=== PATIENT | female | born 1940 | race Caucasian/White ===

== ENCOUNTER → 2018-07-29 14:35 | Outpatient (CLI) | payer MEDICARE, OTHER, SELFPAY ==
--- NOTE | 2018-07-29 14:56 | BD_ITS ---
STUDY: DUAL ENERGY X-RAY ABSORPTIOMETRY / DXA REASON FOR EXAM: Female, 78 years old. The patient is postmenopausal. Loss of height. TECHNIQUE: Bone Mineral Density (BMD) measurements of lumbar spine and bilateral hips were obtained. COMPARISON: None. FINDINGS: Lumbar Spine (L1-L4): g/cm2 (1.199) / T-score (0.3) / Z-score (2.1) Findings are suggestive of normal bone density with a low fracture risk. Left Femur Total: g/cm2 (0.827) / T-score (-1.4) / Z-score (0.5) Left Femoral Neck: g/cm2 (0.728) / T-score (-2.2) / Z-score (-0.1) Right Femur Total: g/cm2 (0.808) / T-score (-1.6) / Z-score (0.4) Right Femoral Neck: g/cm2 (0.731) / T-score (-2.2) / Z-score (-0.1) BD/Dexa Bone Density Study IMPRESSION: The patient is considered osteopenic as outlined below according to World Richard Organization (WHO) criteria with a moderate fracture risk. Reference Information: The T-score is the number of standard deviations above or below the standard which is normal for young adults at their peak bone mineral density. The World Health Organization (WHO) interprets the T-scores as follows: Above -1 Normal bone density Between -1 and -2.5 Osteopenia Equal to / or below -2.5 Osteoporosis As a practical clinical guideline, osteopenia may be graded as follows: Mild -1 through -1.5 Moderate -1.6 through -2.0 Severe -2.1 through -2.4 The Z-score is the number of standard deviations above or below age-matched controls. A Z-score of less than -1.5 would be considered abnormal. References: 1. NIH Osteoporosis and Related Bone Diseases http://www.osteo.org 2. International Society for Clinical Densitometry http://www.iscd.org 3. National Osteoporosis Foundation http://www.nof.org Electronically Signed: Mike Toledo MD at 15:59 EDT Tel [phone], Service support ,
== END ==
PROVIDERS: Family Provider Internal Medicine; PCP Internal Medicine; Visit Provider Internal Medicine
DX: Z78.0 Asymptomatic menopausal state (principal)
CPT/HCPCS: 77080

== ENCOUNTER 2020-12-05 09:56 | Outpatient (RCR) | payer MEDICARE, OTHER, SELFPAY ==
[2020-10-03 11:10] VITALS: BMI 31.9
== END 2020-12-05 23:59 ==
LOC: IMMUN 09:56
PROVIDERS: PCP Internal Medicine; Visit Provider Family Medicine
DX: Z23 Encounter for immunization (principal)
CPT/HCPCS: 0011A; 0012A; 91301

== ENCOUNTER → 2022-06-28 | Outpatient (CLI) | payer MEDICARE, OTHER, SELFPAY ==
[2022-06-28 15:34] LABS: Potassium 4.7 mmol/L (3.5-5.1)
== END | disposition home or self-care (01) ==
LOC: LABSPEC 14:53
PROVIDERS: PCP Internal Medicine; Visit Provider Internal Medicine
DX: E87.5 Hyperkalemia (principal)
CPT/HCPCS: 84132

== ENCOUNTER 2022-11-19 10:34 | Inpatient (IN) | payer MEDICARE, OTHER, SELFPAY ==
[2022-11-19] VITALS (8 sets, daily range): BP systolic 123–170; BP diastolic 57–119; PULSE 66–92; RESP 16–29; TEMP 36.2–36.5; O2SAT 92–96; BMI 34.2; BMI 29.2
--- NOTE | 2022-11-19 10:54 | EKG12_ITS ---
Test Reason : CP Blood Pressure : / mmHG Vent. Rate : 083 BPM Atrial Rate : 083 BPM P-R Int : 220 ms QRS Dur : 102 ms QT Int : 368 ms P-R-T Axes : 048 023 099 degrees QTc Int : 432 ms Sinus rhythm with 1st degree A-V block Consider voltage criteria for LVH Cannot rule out Septal infarct , age undetermined Nonspecific ST and T wave abnormality Abnormal ECG Confirmed by ANGIE FORD, LASHAWN ([id number]), metropolitan editor RICKI FERNANDEZ ([id number]) on 11/20/2022 9:39:15 AM Referred By: RACHEL Confirmed By:LASHAWN ADAMS MD
--- NOTE | 2022-11-19 10:55 | EDS_ITS ---
HPI History of Present Illness Chief Complaint: General Illness Detail of Chief Complaint: This and shortness of breath Informant: patient and family Narrative Narrative: Patient presents to the emergency department chest tightness x2 days. Patient also complains of shortness of breath that at times worse with exertion. She denies any radiation of the chest tightness into the arm or neck or jaw. Patient denies any fever or cough or sore throat. She denies urinary symptoms. Patient thinks that her chest discomfort may be related to eating too much gluten because she has a gluten sensitivity. Patient wanted to make sure she was not having a heart attack. Patient has no heart history otherwise. Patient denies recent travel or surgery. [facility] Medical History (Updated 11/19/22 @ 12:[address] Annie Srinivasan, ) Anxiety Cataracts, bilateral Confusion Diabetes type 1, controlled GERD (gastroesophageal reflux disease) Glaucoma HTN (hypertension) Hypothyroid Home Medications valsartan 160 mg tablet (Diovan) 160 mg PO QDAY 02/26/18 [History Last Taken 2 Days Ago ~11/17/22] Lantus Solostar U-100 Insulin 100 unit/mL (3 mL) subcutaneous pen (insulin glargine) See Rx Instructions subcut DAILY #15 mL 10/03/20 [Rx Last Taken 11/19/22] insulin lispro 100 unit/mL subcutaneous pen (Humalog KwikPen (U-100) Insulin) See Rx Instructions subcut TID e10.65 #30 mL 10/03/20 [Rx Last Taken 11/19/22] latanoprost 0.005 % eye drops 1 drp ophthalmic (eye) QHS GLUCOMA 01/02/21 [History Last Taken 11/18/22] timolol maleate 0.5 % eye drops 1 drp ophthalmic (eye) BID 01/02/21 [History Last Taken 11/19/22] levothyroxine 125 mcg tablet 125 mcg PO .8 tablets per week 09/07/21 [History Last Taken 11/18/22] Allergy/AdvReac Type Severity Reaction Status Date / Time egg [egg whites] Allergy Unknown NEEDS Verified 11/19/22 10:46 FOLLOW-UP house dust Allergy Unknown Unknown Verified 11/19/22 10:46 gluten AdvReac Intermediate unknown Verified 11/19/22 10:46 Family History Sister Diabetes Brother Asthma Social History Smoking Status: Never smoker how long ago did patient quit smokin+ yrs second hand exposure: No alcohol intake: never substance use type: does not use ROS ROS ED Review of Systems ROS Unobtainable: other Constitutional Constitutional ED: Reports lethargy; Denies chills, fever(s), sweats or weight loss Eyes Eyes: Denies blurry vision, change in vision or diplopia ENT ENT ED: Denies rhinorrhea or sore throat Cardiovascular Cardiovascular: Reports chest pain; Denies orthopnea or racing heartbeat Respiratory/Chest Respiratory/Chest: Reports dyspnea and dyspnea on exertion; Denies cough, orthopnea or sputum Gastrointestinal Gastrointestinal: Denies abdominal pain, diarrhea, nausea or vomiting Genitourinary Genitourinary ED: Denies dysuria, hematuria or urinary frequency Musculoskeletal Musculoskeletal: Denies arthralgias, back pain, myalgias or neck pain Integumentary Denies abscess, Abrasions or rash Neurologic Neurologic: Denies headache(s) or weakness Psychiatric Psychiatric: Denies anxiety, depression or suicidal thoughts Endocrine Endocrinology: Denies polydipsia, polyphagia or polyuria Hematologic/Lymphatic Hematologic/Lymphatic: Denies easy bleeding, easy bruising or lymphadenopathy Allergic/Immunologic Allergic/Immunologic ED: Denies mouth swelling, tongue swelling or urticaria EXAM Physical Exam Const Vital Signs: 11/19/22 10:37 11/19/22 10:46 11/19/22 11:30 Temperature 97.1 F L Temperature Source Temporal Pulse Rate 84 81 Respiratory Rate 29 H 22 H Respiratory Effort Short of Breath Respiratory Pattern Tachypnea Blood Pressure 158/119 H 166/112 H Blood Pressure Mean 132 130 Pulse Ox 95 96 Oxygen Delivery Method Room Air Room Air 11/19/22 12:30 Temperature Temperature Source Pulse Rate 91 Respiratory Rate 25 H Respiratory Effort Respiratory Pattern Blood Pressure 154/75 H Blood Pressure Mean 101 Pulse Ox 92 Oxygen Delivery Method Room Air Positive well nourished and well developed General Appearance ED: well developed and NAD HEENT Reports TM's clear and moist mucous membranes normocephalic and atraumatic; Negative for trauma or tenderness Tympanic Membrane ED: Yes TM's clear Eyes PERRL and EOMs intact bilaterally General Eye ED: Negative for pale conjunctiva or scleral icterus Neck no lymphadenopathy, supple and no JVD General: Negative for tenderness Chest Wall inspection of chest normal and palpation of chest normal Chest: Negative for tenderness Resp normal respiratory effort and clear to auscultation bilaterally Effort and Inspection: Negative for respiratory distress or pain with movement Auscultation: Negative for rhonchi, wheezes or diminished lung sounds Cardio regular rate, regular rhythm, S1 normal heart sound, S2 normal heart sound and no murmurs Peripheral Pulses: pulses 2+ throughout GI normal to inspection, nondistended, normoactive bowel sounds, soft to palpation, non-distended and no masses GI Narrative: Mild epigastric tenderness on palpation. There is no rebound, rigidity, or. Signs. Back/Spine no CVA tenderness and no thoracic nor lumbar tenderness Extremity normal to inspection General Extremety ED: Negative for edema General Extremity: Negative for edema Neuro oriented x3, CN's II-XII intact bilaterally, no sensory deficits noted and gait normal Sensorium / Orientation: awake, alert, oriented to person, oriented to place and oriented to time Motor Exam: strength 5/5 throughout and strength abnormal Psych mental status grossly normal Skin no rashes or lesions noted and no wounds MDM MDM MDM Narrative Medical decision making narrative: IV line established on arrival. Patient placed on traffic monitor specialist. Patient had an EKG obtained on arrival that showed a sinus rhythm with a rate of 83 bpm with old septal infarct and first-degree AV block. She had some nonspecific changes laterally which when compared with prior EKG from 2006 appear to be new. Patient did receive aspirin. In the differential was acute coronary syndrome versus PE versus congestive heart failure versus infectious process. Lab work- up significant for a normal WBC count of 10.7 and a hemoglobin of 15. Chemistries significant for a sodium of 128 and BUN of 28 g 1.39. Troponin was elevated at 2739. BNP was elevated. Chest x-ray showed bilateral pleural effusions and CHF. Because of the elevated D-dimer and elevated troponin a CT o f the chest was obtained to rule out PE and this was negative for PE but did show bilateral effusions and CHF. Rapid COVID and influenza testing was negative. Patient was started on heparin drip and given aspirin. Patient had an inch of Nitropaste placed to the anterior chest wall and she was started on Lasix 40 mg IV. Patient has non-ST elevation AL with CHF and pleural effusions. Case will be discussed with hospitalist to evaluate patient for admission. I did ask this with blanket inspector on-call Dr. Levine through a nurse given that he was in a procedure. He had no further recommendations at this time and patient will be admitted to medicine. Lab Data Attestation: I reviewed the patient's lab results. Labs: Laboratory Results - last 24 hr 11/19/22 11/19/22 11/19/22 10:50 10:50 10:50 WBC 10.7 RBC 4.86 Hgb 14.9 Hct 44.4 MCV 91.4 MCH 30.7 MCHC 33.6 RDW Std Deviation 44.1 H RDW Coeff of Geovanna 13.2 Plt Count 310 MPV 10.8 Immature Gran % (Auto) 0.400 Neut % (Auto) 73.1 H Lymph % (Auto) 19.1 [place] % (Auto) 5.6 Eos % (Auto) 1.1 Baso % (Auto) 0.7 Absolute Neuts (auto) 7.9 H Absolute Lymphs (auto) 2.05 Nucleated RBC % 0 PT INR APTT D-Dimer Quant (PE/DVT) 0.89 H* Sodium 128 L Potassium 4.4 Chloride 93 L Carbon Dioxide 26.0 Anion Gap 9 BUN 28 H Creatinine 1.39 H Estim Creat Clear Calc 23.14 Est GFR (MDRD) Af Amer 47 L Est GFR (MDRD) Non-Af 38 L BUN/Creatinine Ratio 20.1 H Glucose 241 H Calcium 9.6 Total Bilirubin 0.90 AST 44 H ALT 38 Alkaline Phosphatase 88 Troponin I High Sens 2739 H* B-Natriuretic Peptide Total Protein 7.7 Albumin 3.7 Globulin 4.0 Albumin/Globulin Ratio 0.9 11/19/22 11/19/22 10:50 10:50 WBC RBC Hgb Hct MCV MCH MCHC RDW Std Deviation RDW Coeff of Geovanna Plt Count MPV Immature Gran % (Auto) Neut % (Auto) Lymph % (Auto) [place] % (Auto) Eos % (Auto) Baso % (Auto) Absolute Neuts (auto) Absolute Lymphs (auto) Nucleated RBC % PT 12.4 INR 1.0 APTT 31.1 D-Dimer Quant (PE/DVT) Sodium Potassium Chloride Carbon Dioxide Anion Gap BUN Creatinine Estim Creat Clear Calc Est GFR (MDRD) Af Amer Est GFR (MDRD) Non-Af BUN/Creatinine Ratio Glucose Calcium Total Bilirubin AST ALT Alkaline Phosphatase Troponin I High Sens B-Natriuretic Peptide 1520.2 H Total Protein Albumin Globulin Albumin/Globulin Ratio Radiography Chest X-Ray - ED: 1 View Diagnostic Testing: Clinical Impression(s) from Imaging Studies Chest CTA 11/19/22 11:38 IMPRESSION: Moderate bilateral pleural effusions right greater than left with bibasilar compressive atelectasis. Patchy areas of confluence in the right upper lobe as well as lingular segment of the left upper lobe. Mild CHF. Electronically Signed: Mike Toledo MD at 12:32 EST , Chest X-Ray 11/19/22 11:40 IMPRESSION: CHF with bibasilar atelectasis and blunting of both costophrenic angles. Electronically Signed: Mike Toledo MD at 12:03 EST , 1 view chest x-ray obtained interpreted by myself as bilateral small pleural effusions and increased pulmonary congestion concerning for CHF. Radiology was in agreement. EKG Initial EKG: Attestation: I personally reviewed and interpreted this EKG as follows: Comments: Sinus rhythm with a rate of 83 bpm with old septal infarct and nonspecific ST changes laterally which are new when compared with EKG from 2006. Discharge Plan Dx/Rx/DC Orders Clinical Impression: Non-ST elevated myocardial infarction, CHF (congestive heart failure), Pleural effusion, History of diabetes mellitus, History of hypertension Disposition Disposition: Acute Care Hospital [facility]
[2022-11-19] MEDS: 0.9% Normal Saline 1,000 ML 15 ML IV (11:09)
[2022-11-19 11:18] LABS: Absolute Lymphocyte Count 2.05 X10^3/uL (0.83-4.51); Absolute Neutrophil Count 7.9 X10^3/uL (2.0-7.7); Basophil# 0.07 X10^3/uL; Basophil% 0.7 % (0-1); Eosinophil# 0.12 X10^3/uL; Eosinophils% 1.1 % (0-5); Hematocrit 44.4 % (37-47); Hemoglobin 14.9 g/dL (12.0-15.0); Lymphocyte # 2.05 X10^3/ul (0.83-4.51); Lymphocyte % 19.1 % (19-41); Mean Corp Hgb Conc 33.6 g/dL (32-36); Mean Corpuscular Hgb 30.7 pg (27.0-32.0); Mean Corpuscular Volume 91.4 fL (81-99); Mean Platelet Vol. 10.8 fl (6.2-12.0); Monocyte% 5.6 % (0-10); NRBC Flagged by Analyzer 0 % (0-5); Neutrophil # 7.86 X10^3/uL (2.7-7.7); Neutrophil % 73.1 % (47-70); Platelet Count 310 K/mm3 (150-450); RBC Distribution Width CV 13.2 % (11.6-14.6); RBC Distribution Width SD 44.1 fl (35.1-43.9); Red Blood Count 4.86 M/mm3 (4.2-5.4); White Blood Count 10.7 K/mm3 (4.4-11.0)
[2022-11-19 11:36] LABS: D-Dimer Quantitative (DVT/PE) 0.89 FEU/ug/m (0.27-0.49)
[2022-11-19 11:38] LABS: ALB/GLOB Ratio 0.9 RATIO (0.9-2.4); AST(SGOT) 44 U/L (15-37); Alanine Aminotransfer ALT/SGPT 38 U/L (13-56); Albumin, Serum 3.7 g/dL (3.2-5.0); Alkaline Phosphatase 88 U/L (45-117); BUN 28 mg/dL (7-18); BUN/Creat Ratio 20.1 RATIO (10-20); Calcium,Total 9.6 mg/dL (8.5-10.1); Chloride 93 mmol/L (98-107); Creatinine, Serum 1.39 mg/dL (0.55-1.02); EST Glomerular Filtration Rate 38 mL/min (>60); Est Glom Filt Rate - Afr Amer 47 mL/min (>60); Estimated Creatinine Clearance 23.14 ml/min; Glucose 241 mg/dL (74-106); Potassium 4.4 mmol/L (3.5-5.1); Protein, Total 7.7 g/dL (6.4-8.2); Sodium Level 128 mmol/L (136-145); Troponin-I HS 2739 pg/mL (3.0-54.0)
--- NOTE | 2022-11-19 11:38 | CT_ITS ---
STUDY: CTA CHEST REASON FOR EXAM: Female, 82 years old. Dyspnea, elevated d-dimer. EXTRA SERIES SCANNED TO INCLUDE OPACIFIED AORTIC ARCH RADIATION DOSAGE (If Supplied By Facility): CTDIvol = ( 13.60 ) mGy, DLP = ( 925.13 ) mGycm TECHNIQUE: The examination was performed with the intravenous administration of IV 100mL Isovue-370. Post-processing of the angiographic images was performed, with multiplanar reformation and 3D reconstruction. Individualized dose optimization techniques were used for this CT. COMPARISON: Comparison is made with prior chest radiograph done earlier in the day. FINDINGS: Normal enhancement of the main pulmonary artery and right and left pulmonary arteries. Normal enhancement of the bilateral peripheral pulmonary arteries. There is no demonstrated pulmonary embolism. There is atherosclerotic calcification of the aortic arch with tortuosity. Small amount of mural thrombus is seen at the level of the aortic arch and descending thoracic aorta. There is no demonstrated aortic dissection. There are calcifications of the coronary arteries. Normal mediastinum. Normal hilar regions. Normal visualized trachea and bronchi. Moderate bilateral pleural effusions right greater than left with bibasilar atelectasis. Increased markings with areas of confluence is seen in the right upper lobe as well as the lingular segment of the left upper lobe. Superimposed CHF. Normal chest wall structures. There are degenerative changes of thoracic spine. Calcified splenic granulomas. CT/CTA Chest W/WO Contrast IMPRESSION: Moderate bilateral pleural effusions right greater than left with bibasilar compressive atelectasis. Patchy areas of confluence in the right upper lobe as well as lingular segment of the left upper lobe. Mild CHF. Electronically Signed: iMke Toledo MD at 12:32 EST ,
[2022-11-19 11:39] LABS: Anion Gap 9 (5-15)
--- NOTE | 2022-11-19 11:40 | RAD_ITS ---
STUDY: X-RAY CHEST REASON FOR EXAM: Female, 82 years old. Chest tightness and dyspnea. TECHNIQUE: Single AP portable view of the chest. COMPARISON: None. FINDINGS: EKG electrodes are seen. Is evidence of CHF with bibasilar atelectasis and blunting of both costophrenic angles. Normal size heart. Normal mediastinum and paula. Normal visualized pulmonary arteries. There is atherosclerotic calcification of the aortic arch with tortuosity. There are degenerative changes of the visualized thoracic spine. There is degenerative osteoarthritis of the bilateral shoulders. There is no demonstrated abnormality of the visualized soft tissue structures of the upper abdomen. RAD/Chest 1 View (Portable) IMPRESSION: CHF with bibasilar atelectasis and blunting of both costophrenic angles. Electronically Signed: Mike Toledo MD at 12:03 EST ,
[2022-11-19 11:55] LABS: BNP,B-Type NATRIURETIC PEPTIDE 1520.2 pg/mL (0-100)
[2022-11-19] MEDS: Aspirin 81 MG TAB.CHEW 324 MG PO (12:22)
[2022-11-19] MEDS: Heparin Injection (Vial) 5,000 UNIT/ML VIAL 6000 UNIT IV (12:24)
[2022-11-19 12:26] LABS: Prothrombin Time (Protime)PT. 12.4 SECONDS (11.7-14.9)
[2022-11-19 12:28] LABS: Partial Thromboplast Time 31.1 Seconds (24.1-36.2)
[2022-11-19] MEDS: Furosemide 40 MG/4 ML Vial IV ×2 (12:35→18:46)
[2022-11-19] MEDS: HEPARIN/D5w 25,000 UNITS 25,000 UNITS/250 ML IV.SOLN. 12 UNITS CONT INF (12:43)
[2022-11-19] MEDS: Nitroglycerin Oint 1 INCH PACKET TD (12:52)
--- NOTE | 2022-11-19 13:44 | ECHOCS_ITS ---
Reason For Study: CHF Procedure This was a 2D Doppler, Color Flow transthoracic echocardiogram. The study was technically difficult. Exam performed portable in patient room. Left Ventricle Normal LV size. Mild concentric left ventricular hypertrophy. The estimated ejection fraction is 15 %. Severe segmental systolic dysfunction (see wall motion). Stage 2 diastolic dysfunction. [place] : Akinetic. Mid-Anterior : Akinetic. Mid-anteroseptal : Severely Hypokinetic. Inferior [place] : Akinetic. Anterio-Basal: Hypokinetic. Mid-Inferior: Hypokinetic. Infero-Basal: Normal. The rest of the wall segments are hypokinetic. Right Ventricle Normal RV size. Normal systolic function. Atria The left atrium is mildly enlarged. Normal right atrium. Mitral Valve There is moderate to severe mitral annular calcification. Moderate (2+) anteriorly directed mitral valve insufficiency. Tricuspid Valve Normal tricuspid valve. Moderate (2+) tricuspid valve insufficiency. Pulmonary artery systolic pressure is 54 mmHg. Aortic Valve Trisinus/trileaflet aortic valve. Mild focal aortic valve calcification. Mild (1+) aortic valve insufficiency. Great Vessels Calcified aortic root. The pulmonary artery is normal size. The inferior vena cava is dilated. Pericardium/Pleural No pericardial effusion. Moderate size left pleural effusion. Medication Diluted definity 2ml given slow IV push to enhance endocardial definition. MMode/2D Measurements & Calculations LVIDd: 5.3 cm IVSd: 1.4 cm LVOT diam: 2.0 cm LVIDs: 4.3 cm LVPWd: 1.2 cm LVOT area: 3.2 cm2 RVDd: 3.2 cm FS: 18.4 % Ao root diam: 2.7 cm LAV(MOD-bp): 72.5 ml LVAd ap4: 37.0 cm2 LAV(MOD-bp) Indexed: 40.1 ml/m2 LVLd ap4: 7.9 cm LAV(MOD-sp2): 70.0 ml EDV(MOD-sp4): 139.9 ml LAV(MOD-sp4): 69.8 ml EDV(sp4-el): 147.1 ml LVAs ap4: 32.4 cm2 LVLs ap4: 7.9 cm ESV(MOD-sp4): 108.9 ml ESV(sp4-el): 112.5 ml EF(MOD-sp4): 22.1 % EF(sp4-el): 23.5 % SV(MOD-sp4): 31.0 ml SV(sp4-el): 34.6 ml LA A4 area: 22.8 cm2 LA dimension(2D): 4.2 cm RA A4 area: 16.8 cm2 Time Measurements MV dec time: 0.22 sec Doppler Measurements & Calculations MV E max froilan: 170.3 cm/sec Lat Peak E' Froilan: 8.9 cm/sec Med Peak E' Froilan: 4.6 cm/sec MV A max froilan: 119.1 cm/sec E/E' lat: 19.2 E/E' med: 36.9 MV E/A: 1.4 MV P1/2t max froilan: 205.1 cm/sec Ao V2 max: 115.3 cm/sec LV V1 max: 56.8 cm/sec MV P1/2t: 76.5 msec Ao max P.3 mmHg LV V1 max P.3 mmHg Ao V2 mean: 83.7 cm/sec LV V1 mean P.63 mmHg MV dec slope: 785.1 cm/sec2 Ao mean P.1 mmHg LV V1 mean: 36.8 cm/sec MVA(P1/2t): 2.9 cm2 Ao V2 VTI: 17.0 cm LV V1 VTI: 9.0 cm AV (velocity ratio): 0.53 BRYON(I,D): 1.7 cm2 BRYON(V,D): 1.6 cm2 SV(LVOT): 28.6 ml PA V2 max: 56.8 cm/sec TR max froilan: 348.1 cm/sec TR max P.5 mmHg ECHO/Echo Complete W/ Contrast Interpretation Summary Normal LV size. Mild concentric left ventricular hypertrophy. The estimated ejection fraction is 15 %. Severe segmental systolic dysfunction (see wall motion). The left atrium is mildly enlarged. There is moderate to severe mitral annular calcification. Moderate (2+) anteriorly directed mitral valve insufficiency. Stage 2 diastolic dysfunction. Contrast injection was performed. Ordering Physician: Dylon Benito Referring Physician: ANTWON MUÑOZ Performed By: Blaire White RDCS
--- NOTE | 2022-11-19 15:05 | CON.PCM.CA_ITS ---
Assessment & Plan Assessment/Plan (1) Non-ST elevated myocardial infarction: PLAN: She presents with mild chest discomfort abnormal cardiac enzymes consistent with a non-ST elevation myocardial infarction. Her EKG does demonstrate poor R wave progression. Her echocardiogram which is in the process of being performed demonstrates severe left ventricular systolic dysfunction with wall motion abnormalities. * My suspicion is that she has had a recent non-ST elevation myocardial infarction * The plan will be to continue with aspirin * Continue heparin for now * Will consider left heart catheterization when clinically stable (2) CHF (congestive heart failure): PLAN: She does have evidence of congestive heart failure with reduced ejection fraction [place] [employer] class IV ACC stage D. Will recommend intravenous diuresis Low-dose beta-david and titrate upwards as appropriate Add SGLT2 inhibitor Add Entresto during this hospitalization Her ejection fraction is estimated to be less than 25% (3) History of hypertension: PLAN: She presented with an elevated blood pressure which appears to be better at this time but will recommend continuation of the beta-david and the addition of Entresto. HPI Consult Data Date of Consult: 11/19/22 HPI Narrative HPI Narrative: GERMÁN HENSLEY, is a 82 F who presents to the emergency room complaining of shortness of breath which has been ongoing for few days. She has a history of diabetes mellitus as well as hypertension but her history is quite nebulous but she says that since [place] after she checked into a hotel because it was too cold she has never really felt well. She is also had some chest tightness as well as shortness of breath she denies any pedal edema. She has had a mild cough and thinks that she has had mild orthopnea. She denies any paroxysmal nocturnal dyspnea. She has not had any radiation of this discomfort. She presented to the emergency room was evaluated and blood work demonstrated an elevated natruretic peptide as well as troponin level. Her EKG demonstrated poor R wave progression. She was admitted for further evaluation and manag ement. [facility] Medical History (Updated 11/19/22 @ 12:[address] Annie Srinivasan DO) Anxiety Cataracts, bilateral Confusion Diabetes type 1, controlled GERD (gastroesophageal reflux disease) Glaucoma HTN (hypertension) Hypothyroid Home Medications valsartan 160 mg tablet (Diovan) 160 mg PO QDAY 02/26/18 [History Last Taken 2 Days Ago ~11/17/22] Lantus Solostar U-100 Insulin 100 unit/mL (3 mL) subcutaneous pen (insulin glargine) See Rx Instructions subcut DAILY #15 mL 10/03/20 [Rx Last Taken 11/04 04/26] insulin lispro 100 unit/mL subcutaneous pen (Humalog KwikPen (U-100) Insulin) See Rx Instructions subcut TID e10.65 #30 mL 10/03/20 [Rx Last Taken 11/19/22] latanoprost 0.005 % eye drops 1 drp ophthalmic (eye) QHS GLUCOMA 01/02/21 [History Last Taken 11/18/22] timolol maleate 0.5 % eye drops 1 drp ophthalmic (eye) BID 01/02/21 [History Last Taken 11/19/22] levothyroxine 125 mcg tablet 125 mcg PO .8 tablets per week 09/07/21 [History Last Taken 11/18/22] Allergy/AdvReac Type Severity Reaction Status Date / Time egg [egg whites] Allergy Unknown NEEDS Verified 11/19/22 10:46 FOLLOW-UP house dust Allergy Unknown Unknown Verified 11/19/22 10:46 gluten AdvReac Intermediate unknown Verified 11/19/22 10:46 Family History Sister Diabetes Brother Asthma Social History Smoking Status: Never smoker how long ago did patient quit smokin+ yrs second hand exposure: No alcohol intake: never substance use type: does not use ROS Constitutional Constitutional: Denies fever(s) or weight loss Eyes Eyes: Reports systems reviewed and no addt'l complaints, except as documented ENT HEENT: Reports systems reviewed and no addt'l complaints, except as documented Cardiovascular Cardiovascular: Reports chest pain at rest, dyspnea at rest and dyspnea on exertion; Denies chest pain with activity, edema, palpitations or paroxysmal nocturnal dyspnea Respiratory/Chest Respiratory/Chest: Reports dyspnea on exertion, productive cough, shortness of breath at rest and shortness of breath with exertion Gastrointestinal Gastrointestinal: Denies change in bowel habits, nausea, vomiting or weight changes Genitourinary Genitourinary: Denies difficulty urinating Musculoskeletal Musculoskeletal: Denies joint stiffness or muscle weakness Integumentary Integumentary: Denies lesions Neurologic Neurologic: Denies dizziness or syncope Psychiatric Psychiatric: Denies anxiety Endocrine Endocrinology: Denies excessive sweating or fatigue Hematologic/Lymphatic Hematologic/Lymphatic: Denies anemia Allergic/Immunologic Allergic/Immunologic: Denies seasonal rhinorrhea Physical Exam Const alert, oriented x3 and no apparent distress General Appearance: cooperative HEENT hearing grossly normal bilaterally Head and Scalp: atraumatic Eyes EOMs intact bilaterally Neck General: normal visual inspection Chest inspection of chest normal and palpation of chest normal Resp normal respiratory effort Auscultation: diminished lung sounds Cardio regular rate, regular rhythm, S1 normal heart sound and S2 normal heart sound Jugular Venous Distention: JVD Heart Sounds: gallop GI normal to inspection, nondistended, normoactive bowel sounds Extremity normal capillary refill and no pedal edema Peripheral Pulses: Yes pulses 2+ throughout and femoral pulses present Skin no rashes or lesions noted Neuro oriented x3 and CN's II-XII intact bilaterally Psych Appearance: grossly normal and appropriate Risk Stratification Risk Stratification Applicable: Yes Age >/= 65: Yes >/= 3 CAD Risk Factors (HTN, HLD, DM, family hx of CAD, or current smoker): Yes Aspirin Use in the Past 7 Days: No Severe Angina (>/= episodes in 24 hours): No EKG ST Changes >/= 0.5mm: No Positive Cardiac Marker: Yes LOU Risk Stratification Score: 3 LOU % Risk: 13% Risk Objective Data Vital Signs: Vital Signs Temp Pulse Resp BP Pulse Ox O2 Del Method 97.7 F L 90 18 170/77 H 94 Room Air 11/19/22 13:53 11/19/22 13:53 11/19/22 13:53 11/19/22 13:53 11/19/22 13:53 11/19/22 13:53 Oxygen Delivery Method Room Air Weight: 170 lb 3.15 oz Body Mass Index (BMI) 29.2 Intake & Output: Intake and Output for Last 24 Hours 11/17/22 11/18/22 11/19/22 23:59 23:59 23:59 Intake Total 46.5 / 46.5 Balance 46.5 / 46.5 Lab / Micro Data Result Diagrams: 11/19/22 10:50 11/19/22 10:50 Labs: Laboratory Results - last 24 hr 11/19/22 10:50: WBC 10.7, RBC 4.86, Hgb 14.9, Hct 44.4, MCV 91.4, MCH 30.7, MCHC 33.6, RDW Std Deviation 44.1 H, RDW Coeff of Geovanna 13.2, Plt Count 310, MPV 10.8, Immature Gran % (Auto) 0.400, Neut % (Auto) 73.1 H, Lymph % (Auto) 19.1, [place] % (Auto) 5.6, Eos % (Auto) 1.1, Baso % (Auto) 0.7, Absolute Neuts (auto) 7.9 H, Absolute Lymphs (auto) 2.05, Nucleated RBC % 0 11/19/22 10:50: D-Dimer Quant (PE/DVT) 0.89 H* 11/19/22 10:50: Sodium 128 L, Potassium 4.4, Chloride 93 L, Carbon Dioxide 26.0, Anion Gap 9, BUN 28 H, Creatinine 1.39 H, Estim Creat Clear Calc 23.14, Est GFR (MDRD) Af Amer 47 L, Est GFR (MDRD) Non-Af 38 L, BUN/Creatinine Ratio 20.1 H, Glucose 241 H, Calcium 9.6, Total Bilirubin 0.90, AST 44 H, ALT 38, Alkaline Phosphatase 88, Troponin I High Sens 2739 H*, Total Protein 7.7, Albumin 3.7, Globulin 4.0, Albumin/Globulin Ratio 0.9 11/19/22 10:50: B-Natriuretic Peptide 1520.2 H 11/19/22 10:50: PT 12.4, INR 1.0, APTT 31.1 Micro: Microbiology 11/19/22 10:50 Nasal Secretion SARS-CoV-2 & FLU Antigen (Rapid) - Final Rhythm Strip Rhythm Strip: Sinus Rhythm Cardiology Labs/Tests 11/19/22 10:50: WBC 10.7, RBC 4.86, Hgb 14.9, Hct 44.4, MCV 91.4, MCH 30.7, MCHC 33.6, Plt Count 310, MPV 10.8, Immature Gran % (Auto) 0.400, Neut % (Auto) 73.1 H, Lymph % (Auto) 19.1, [place] % (Auto) 5.6, Eos % (Auto) 1.1, Baso % (Auto) 0.7, Absolute Neuts (auto) 7.9 H, Nucleated RBC % 0 11/19/22 10:50: D-Dimer Quant (PE/DVT) 0.89 H* 11/19/22 10:50: Sodium 128 L, Potassium 4.4, Chloride 93 L, Carbon Dioxide 26.0, Anion Gap 9, BUN 28 H, Creatinine 1.39 H, Est GFR (MDRD) Af Amer 47 L, Est GFR (MDRD) Non-Af 38 L, BUN/Creatinine Ratio 20.1 H, Glucose 241 H, Calcium 9.6, Total Bilirubin 0.90 11/19/22 10:50: B-Natriuretic Peptide 1520.2 H 11/19/22 10:50: PT 12.4, INR 1.0, APTT 31.1 Rhythm: EKG: ECHO: Stress Test: Cardiac Cath: PCI: CT Surgery: Holter monitor: EPS: PPM: CXR: Chest CT Scan: Radiography Diagnostic Testing: Radiology Impression Chest CTA 11/19/22 11:38 IMPRESSION: Moderate bilateral pleural effusions right greater than left with bibasilar compressive atelectasis. Patchy areas of confluence in the right upper lobe as well as lingular segment of the left upper lobe. Mild CHF. Electronically Signed: Mike Toledo MD at 12:32 EST , Chest X-Ray 11/19/22 11:40 IMPRESSION: CHF with bibasilar atelectasis and blunting of both costophrenic angles. Electronically Signed: Mike Toledo MD at 12:03 EST ,
[2022-11-19] MEDS: Losartan Potassium 50 MG Tablet PO (15:38)
--- NOTE | 2022-11-19 15:48 | PCM.HP.STD ---
HPI - General General Date of Admission: 11/19/22 HPI Narrative GERMÁN HENSLEY, is a 82 F who presents to the hospital with shortness of breath and orthopnea. She states that she has been noticing increased pressure and dyspnea on exertion for the last couple of days but it was really bad yesterday and then even worse today. She has difficulty laying down and feels better when she is sitting upright. In the ER her troponin was found to be 2700 with an elevated BNP to 1520, we do not have baselines for either of those labs. [facility] Medical History (Updated 11/19/22 @ 12:[address] Annie Srinivasan DO) Anxiety Cataracts, bilateral Confusion Diabetes type 1, controlled GERD (gastroesophageal reflux disease) Glaucoma HTN (hypertension) Hypothyroid Home Medications valsartan 160 mg tablet (Diovan) 160 mg PO QDAY 02/26/18 [History Last Taken 2 Days Ago ~11/17/22] Lantus Solostar U-100 Insulin 100 unit/mL (3 mL) subcutaneous pen (insulin glargine) See Rx Instructions subcut DAILY #15 mL 10/03/20 [Rx Last Taken 11/19/22] insulin lispro 100 unit/mL subcutaneous pen (Humalog KwikPen (U-100) Insulin) See Rx Instructions subcut TID e10.65 #30 mL 10/03/20 [Rx Last Taken 11/19/22] latanoprost 0.005 % eye drops 1 drp ophthalmic (eye) QHS GLUCOMA 01/02/21 [History Last Taken 11/18/22] timolol maleate 0.5 % eye drops 1 drp ophthalmic (eye) BID 01/02/21 [History Last Taken 11/19/22] levothyroxine 125 mcg tablet 125 mcg PO .8 tablets per week 09/07/21 [History Last Taken 11/18/22] Allergy/AdvReac Type Severity Reaction Status Date / Time egg [egg whites] Allergy Unknown NEEDS Verified 11/19/22 10:46 FOLLOW-UP house dust Allergy Unknown Unknown Verified 11/19/22 10:46 gluten AdvReac Intermediate unknown Verified 11/19/22 10:46 Family History Sister Diabetes Brother Asthma Social History Smoking Status: Never smoker how long ago did patient quit smokin+ yrs second hand exposure: No alcohol intake: never substance use type: does not use ROS Constitutional Constitutional: Denies chills, fatigue, fever(s) or malaise Eyes Eyes: Denies blurry vision ENT HEENT: Denies headache(s) or nasal discharge Cardiovascular Cardiovascular: Reports dyspnea on exertion and orthopnea; Denies chest pain or syncope Respiratory/Chest Respiratory/Chest: Denies cough, shortness of breath at rest or shortness of breath with exertion Gastrointestinal Gastrointestinal: Denies constipation, diarrhea, nausea or vomiting Genitourinary Genitourinary: Denies dysuria Neurologic Neurologic: Denies focal weakness, numbness or tremor(s) Psychiatric Psychiatric: Denies anxiety or depression Vital Signs Vital Signs Vital Signs: 11/19/22 10:37 11/19/22 10:46 11/19/22 11:30 Temperature 97.1 F L Temperature Source Temporal Pulse Rate 84 81 Respiratory Rate 29 H 22 H Respiratory Effort Short of Breath Respiratory Pattern Tachypnea Blood Pressure 158/119 H 166/112 H Blood Pressure Mean 132 130 Blood Pressure Source Blood Pressure Position Blood Pressure Location Pulse Ox 95 96 Oxygen Delivery Method Room Air Room Air 11/19/22 12:30 11/19/22 12:52 11/19/22 13:15 Temperature 97.1 F L Temperature Source Temporal Pulse Rate 91 92 88 Respiratory Rate 25 H 16 Respiratory Effort Respiratory Pattern Blood Pressure 154/75 H 163/94 H 158/88 H Blood Pressure Mean 101 111 Blood Pressure Source Blood Pressure Position Blood Pressure Location Pulse Ox 92 92 Oxygen Delivery Method Room Air Room Air 11/19/22 13:53 Temperature 97.7 F L Temperature Source Oral Pulse Rate 90 Respiratory Rate 18 Respiratory Effort Respiratory Pattern Blood Pressure 170/77 H Blood Pressure Mean 108 Blood Pressure Source Monitor Blood Pressure Position Semi-Fowlers Blood Pressure Location Left Arm Pulse Ox 94 Oxygen Delivery Method Room Air Weight Weight: 170 lb 3.15 oz Body Mass Index (BMI) 29.2 Physical Exam Const alert, oriented x3 and no apparent distress General Appearance: cooperative HEENT normocephalic Mouth: dry mucous membranes Eyes PERRL, EOMs intact bilaterally and conjunctivae normal Neck supple and no JVD Resp normal respiratory effort, no retractions and no use of accessory muscles Resp Narrative: Diminished Auscultation: Negative for crackles, rales, rhonchi or wheezes Cardio regular rate, regular rhythm, S1 normal heart sound, S2 normal heart sound and no murmurs GI soft to palpation, non-tender and non-distended; Negative for hepatosplenomegaly Extremity Extremity Narrative: Trace lower extremity edema General Extremity: Negative for clubbing or cyanosis Skin no rashes or lesions noted Neuro no focal motor deficits and no sensory deficits noted Psych Mood & Affect: anxious Results Lab / Micro Data Result Diagrams: 11/19/22 10:50 11/19/22 10:50 Labs: Laboratory Results - last 24 hr 11/19/22 10:50: WBC 10.7, RBC 4.86, Hgb 14.9, Hct 44.4, MCV 91.4, MCH 30.7, MCHC 33.6, RDW Std Deviation 44.1 H, RDW Coeff of Geovanna 13.2, Plt Count 310, MPV 10.8, Immature Gran % (Auto) 0.400, Neut % (Auto) 73.1 H, Lymph % (Auto) 19.1, [place] % (Auto) 5.6, Eos % (Auto) 1.1, Baso % (Auto) 0.7, Absolute Neuts (auto) 7.9 H, Absolute Lymphs (auto) 2.05, Nucleated RBC % 0 11/19/22 10:50: D-Dimer Quant (PE/DVT) 0.89 H* 11/19/22 10:50: Sodium 128 L, Potassium 4.4, Chloride 93 L, Carbon Dioxide 26.0, Anion Gap 9, BUN 28 H, Creatinine 1.39 H, Estim Creat Clear Calc 23.14, Est GFR (MDRD) Af Amer 47 L, Est GFR (MDRD) Non-Af 38 L, BUN/Creatinine Ratio 20.1 H, Glucose 241 H, Calcium 9.6, Total Bilirubin 0.90, AST 44 H, ALT 38, Alkaline Phosphatase 88, Troponin I High Sens 2739 H*, Total Protein 7.7, Albumin 3.7, Globulin 4.0, Albumin/Globulin Ratio 0.9 11/19/22 10:50: B-Natriuretic Peptide 1520.2 H 11/19/22 10:50: PT 12.4, INR 1.0, APTT 31.1 Micro: Microbiology 11/19/22 10:50 Nasal Secretion SARS-CoV-2 & FLU Antigen (Rapid) - Final Rhythm Strip Rhythm Strip: Sinus Rhythm Radiology Impression Chest CTA 11/19/22 11:38 IMPRESSION: Moderate bilateral pleural effusions right greater than left with bibasilar compressive atelectasis. Patchy areas of confluence in the right upper lobe as well as lingular segment of the left upper lobe. Mild CHF. Electronically Signed: Mike Toledo MD at 12:32 EST , Chest X-Ray 11/19/22 11:40 IMPRESSION: CHF with bibasilar atelectasis and blunting of both costophrenic angles. Electronically Signed: Mike Toledo MD at 12:03 EST , Assessment & Plan Assessment/Plan (1) Non-ST elevated myocardial infarction: (2) CHF (congestive heart failure): PLAN: Plan 1. Non-STEMI with acute heart failure of unknown type ? She did receive a dose of Lasix in the ER for her BNP ? Consult cardiology for heart cath ? Continue with heparin drip and continue with IV Lasix, she was also started on Coreg ? Continue with losartan ? Her kidney function is elevated but it is unclear as to whether or not this is her baseline or an ALMITA as we have no previous lab work, her creatinine on admission is 1.39 ? Echo is pending 2. DM2 ? Stable, Accu-Cheks AC at bedtime ? Continue sliding scale insulin and the long-acting insulin ? Will make adjustments as necessary 3. Hypothyroidism ? Stable ? Continue with Synthroid 4. Anxiety ? She did have rapid speech and perseverated she was also somewhat restless in bed she does have very poor insight into her mental health and with family at bedside it does appear that she has OCD and hoarding tendencies I discussed with her the possibility of being started on an antidepressant but she said no and that she would not take anything on discharge ? We will provide some Ativan to help her sleep while here in the hospital DVT: Heparin drip Charges/Coding Visit Charges Inpatient E&M: 90169 Init Hosp L2
[2022-11-19] MEDS: Insulin Lispro 100 UNIT/ML INSULN.PEN SC (17:03)
[2022-11-19 17:10] LABS: Bedside Glucose 273 mg/dL (74-106)
[2022-11-19 17:39] LABS: Troponin-I HS 1792 pg/mL (3.0-54.0)
[2022-11-19] MEDS: 0.9% Saline Lock 10 ML Syringe IV ×2 (18:46→23:27)
[2022-11-19 19:41] LABS: Partial Thromboplast Time > 200.0 Seconds (24.1-36.2)
[2022-11-19 19:43] LABS: Troponin-I HS 2404 pg/mL (3.0-54.0)
[2022-11-19] MEDS: Insulin Glargine-YFGN 100 UNIT/ML Pen 10 UNIT SC (22:00)
[2022-11-19] MEDS: Carvedilol 3.125 MG TABLET PO (22:00)
[2022-11-19] MEDS: Timolol 0.5% 5ML OPTH.BTL 1 DRP EACH EYE (22:01)
[2022-11-19 22:31] LABS: Bacteria 0 SEEN /hpf (None Seen); Color, Urine Yellow (Yellow); Glucose, Dipstick Normal (Normal); Ketone-Dipstick Negative (Negative); Leukocyte Esterase-Dipstick Negative /ul (Negative); Mucous, Urine 0 SEEN /hpf (<or=2+); Nitrite-Dipstick Negative (Negative); Occult Blood-Urine Negative /ul (Negative); Protein-Dipstick Negative (Negative); Red Blood Cells-Urine 0 SEEN /hpf (0-5); Squamous Epithelial Cells - UA 0 SEEN /hpf (5-10); Urine Bilirubin Dipstick Negative (Negative); Urine Clarity Clear (Clear); Urine Urobilinogen Normal (Normal); White Blood Cells 0 SEEN /hpf (0-5)
[2022-11-19] MEDS: LORazepam 2 MG/ML Syringe 0.5 MG IV (23:27)
[2022-11-19 23:31] LABS: Bedside Glucose 232 mg/dL (74-106)
[2022-11-19 23:54] LABS: Troponin-I HS 5671 pg/mL (3.0-54.0)
[2022-11-20] VITALS (9 sets, daily range): BP systolic 116–145; BP diastolic 54–83; PULSE 58–77; RESP 16–18; TEMP 36.4–37.3; O2SAT 91–99
[2022-11-20] MEDS: Insulin Lispro 100 UNIT/ML INSULN.PEN SC ×4 (01:09→21:37)
[2022-11-20 01:31] LABS: Bedside Glucose 172 mg/dL (74-106)
[2022-11-20 03:43] LABS: Absolute Lymphocyte Count 3.33 X10^3/uL (0.83-4.51); Absolute Neutrophil Count 4.6 X10^3/uL (2.0-7.7); Basophil# 0.07 X10^3/uL; Basophil% 0.8 % (0-1); Eosinophil# 0.09 X10^3/uL; Hematocrit 39.5 % (37-47); Hemoglobin 13.3 g/dL (12.0-15.0); Lymphocyte # 3.33 X10^3/ul (0.83-4.51); Lymphocyte % 37.1 % (19-41); Mean Corp Hgb Conc 33.7 g/dL (32-36); Mean Corpuscular Hgb 30.6 pg (27.0-32.0); Mean Platelet Vol. 10.2 fl (6.2-12.0); Monocyte# 0.84 X10^3/uL; Monocyte% 9.4 % (0-10); NRBC Flagged by Analyzer 0 % (0-5); Neutrophil % 51.3 % (47-70); Platelet Count 276 K/mm3 (150-450); RBC Distribution Width CV 13.1 % (11.6-14.6); RBC Distribution Width SD 43.1 fl (35.1-43.9); Red Blood Count 4.34 M/mm3 (4.2-5.4)
[2022-11-20 03:59] LABS: Anion Gap 9 (5-15); BUN 34 mg/dL (7-18); BUN/Creat Ratio 22.4 RATIO (10-20); Calcium,Total 9.1 mg/dL (8.5-10.1); Chloride 95 mmol/L (98-107); Creatinine, Serum 1.52 mg/dL (0.55-1.02); EST Glomerular Filtration Rate 35 mL/min (>60); Est Glom Filt Rate - Afr Amer 42 mL/min (>60); Estimated Creatinine Clearance 24.22 ml/min; Glucose 96 mg/dL (74-106); Potassium 4.2 mmol/L (3.5-5.1); Sodium Level 133 mmol/L (136-145)
[2022-11-20 04:04] LABS: Partial Thromboplast Time 158.2 Seconds (24.1-36.2)
[2022-11-20] MEDS: Levothyroxine 125 MCG Tablet PO (06:20)
[2022-11-20 06:50] LABS: Bedside Glucose 85 mg/dL (74-106)
--- NOTE | 2022-11-20 08:27 | PN.CARD_ITS ---
Subjective Subjective Patient seen and evaluated. Appears to be breathing much better this morning. Objective Data Vital Signs: Vital Signs Temp Pulse Resp BP Pulse Ox O2 Del Method 97.5 F L 64 18 117/62 94 Room Air 11/20/22 06:25 11/20/22 06:25 11/20/22 06:25 11/20/22 06:25 11/20/22 06:25 11/20/22 06:25 Oxygen Delivery Method Room Air Weight: 170 lb 3.15 oz Body Mass Index (BMI) 29.2 Intake & Output: Intake and Output for Last 24 Hours 11/18/22 11/19/22 11/20/22 23:59 23:59 23:59 Intake Total 331.1 / 331.1 177.15 / 177.15 Output Total 0 / 0 Balance 331.1 / 331.1 177.15 / 177.15 Lab / Micro Data Result Diagrams: 11/20/22 03:34 11/20/22 03:34 Labs: Laboratory Results - last 24 hr 11/19/22 10:50: WBC 10.7, RBC 4.86, Hgb 14.9, Hct 44.4, MCV 91.4, MCH 30.7, MCHC 33.6, RDW Std Deviation 44.1 H, RDW Coeff of Geovanna 13.2, Plt Count 310, MPV 10.8, Immature Gran % (Auto) 0.400, Neut % (Auto) 73.1 H, Lymph % (Auto) 19.1, Stephens % (Auto) 5.6, Eos % (Auto) 1.1, Baso % (Auto) 0.7, Absolute Neuts (auto) 7.9 H, Absolute Lymphs (auto) 2.05, Nucleated RBC % 0 11/19/22 10:50: D-Dimer Quant (PE/DVT) 0.89 H* 11/19/22 10:50: Sodium 128 L, Potassium 4.4, Chloride 93 L, Carbon Dioxide 26.0, Anion Gap 9, BUN 28 H, Creatinine 1.39 H, Estim Creat Clear Calc 23.14, Est GFR (MDRD) Af Amer 47 L, Est GFR (MDRD) Non-Af 38 L, BUN/Creatinine Ratio 20.1 H, Glucose 241 H, Calcium 9.6, Total Bilirubin 0.90, AST 44 H, ALT 38, Alkaline Phosphatase 88, Troponin I High Sens 2739 H*, Total Protein 7.7, Albumin 3.7, Globulin 4.0, Albumin/Globulin Ratio 0.9 11/19/22 10:50: B-Natriuretic Peptide 1520.2 H 11/19/22 10:50: PT 12.4, INR 1.0, APTT 31.1 11/19/22 16:52: POC Glucose 273 H 11/19/22 16:55: Troponin I High Sens 1792 H* 11/19/22 18:46: APTT > 200.0 H* 11/19/22 18:46: Troponin I High Sens 2404 H* 11/19/22 21:58: POC Glucose 232 H 11/19/22 22:09: Urine Color Yellow, Urine Clarity Clear, Urine pH 6.0, Ur Specific [place] 1.010, Urine Protein Negative, Urine Glucose (UA) Normal, Urine Ketones Negative, Urine Occult Blood Negative, Urine Nitrite Negative, Urine Bilirubin Negative, Urine Urobilinogen Normal, Ur Leukocyte Esterase Negative, Urine RBC 0 SEEN, Urine WBC 0 SEEN, Ur Squamous Epith Cells 0 SEEN, Urine Bacteria 0 SEEN, Urine Mucus 0 SEEN 11/19/22 23:10: Troponin I High Sens 5671 H* 11/20/22 01:09: POC Glucose 172 H 11/20/22 03:34: WBC 9.0, RBC 4.34, Hgb 13.3, Hct 39.5, MCV 91.0, MCH 30.6, MCHC 33.7, RDW Std Deviation 43.1, RDW Coeff of Geovanna 13.1, Plt Count 276, MPV 10.2, Immature Gran % (Auto) 0.400, Neut % (Auto) 51.3, Lymph % (Auto) 37.1, Stephens % (A uto) 9.4, Eos % (Auto) 1.0, Baso % (Auto) 0.8, Absolute Neuts (auto) 4.6, Absolute Lymphs (auto) 3.33, Nucleated RBC % 0 11/20/22 03:34: Sodium 133 L, Potassium 4.2, Chloride 95 L, Carbon Dioxide 29.0, Anion Gap 9, BUN 34 H, Creatinine 1.52 H, Estim Creat Clear Calc 24.22, Est GFR (MDRD) Af Amer 42 L, Est GFR (MDRD) Non-Af 35 L, BUN/Creatinine Ratio 22.4 H, Glucose 96, Calcium 9.1 11/20/22 03:34: APTT 158.2 H* 11/20/22 06:18: POC Glucose 85 Micro: Microbiology 11/19/22 10:50 Nasal Secretion SARS-CoV-2 & FLU Antigen (Rapid) - Final Rhythm Strip Rhythm Strip: Sinus Rhythm Cardiology Labs/Tests 11/19/22 10:50: WBC 10.7, RBC 4.86, Hgb 14.9, Hct 44.4, MCV 91.4, MCH 30.7, MCHC 33.6, Plt Count 310, MPV 10.8, Immature Gran % (Auto) 0.400, Neut % (Auto) 73.1 H, Lymph % (Auto) 19.1, Stephens % (Auto) 5.6, Eos % (Auto) 1.1, Baso % (Auto) 0.7, Absolute Neuts (auto) 7.9 H, Nucleated RBC % 0 11/19/22 10:50: D-Dimer Quant (PE/DVT) 0.89 H* 11/19/22 10:50: Sodium 128 L, Potassium 4.4, Chloride 93 L, Carbon Dioxide 26.0, Anion Gap 9, BUN 28 H, Creatinine 1.39 H, Est GFR (MDRD) Af Amer 47 L, Est GFR (MDRD) Non-Af 38 L, BUN/Creatinine Ratio 20.1 H, Glucose 241 H, Calcium 9.6, Total Bilirubin 0.90 11/19/22 10:50: B-Natriuretic Peptide 1520.2 H 11/19/22 10:50: PT 12.4, INR 1.0, APTT 31.1 11/19/22 18:46: APTT > 200.0 H* 11/19/22 22:09: Urine Color Yellow, Urine Clarity Clear, Urine pH 6.0, Ur Specific [place] 1.010, Urine Protein Negative, Urine Glucose (UA) Normal, Urine Ketones Negative, Urine Occult Blood Negative, Urine Nitrite Negative, Urine Bilirubin Negative, Urine Urobilinogen Normal, Ur Leukocyte Esterase Negative, Urine RBC 0 SEEN, Urine WBC 0 SEEN 11/20/22 03:34: WBC 9.0, RBC 4.34, Hgb 13.3, Hct 39.5, MCV 91.0, MCH 30.6, MCHC 33.7, Plt Count 276, MPV 10.2, Immature Gran % (Auto) 0.400, Neut % (Auto) 51.3, Lymph % (Auto) 37.1, Stephens % (Auto) 9.4, Eos % (Auto) 1.0, Baso % (Auto) 0.8, Absolute Neuts (auto) 4.6, Nucleated RBC % 0 11/20/22 03:34: Sodium 133 L, Potassium 4.2, Chloride 95 L, Carbon Dioxide 29.0, Anion Gap 9, BUN 34 H, Creatinine 1.52 H, Est GFR (MDRD) Af Amer 42 L, Est GFR (MDRD) Non-Af 35 L, BUN/Creatinine Ratio 22.4 H, Glucose 96, Calcium 9.1 11/20/22 03:34: APTT 158.2 H* Rhythm: EKG: ECHO: Stress Test: Cardiac Cath: PCI: CT Surgery: Holter monitor: EPS: PPM: CXR: Chest CT Scan: Radiography Diagnostic Testing: Radiology Impression Chest CTA 11/19/22 11:38 IMPRESSION: Moderate bilateral pleural effusions right greater than left with bibasilar compressive atelectasis. Patchy areas of confluence in the right upper lobe as well as lingular segment of the left upper lobe. Mild CHF. Electronically Signed: Mike Toledo MD at 12:32 EST , Chest X-Ray 11/19/22 11:40 IMPRESSION: CHF with bibasilar atelectasis and blunting of both costophrenic angles. Electronically Signed: Mike Toledo MD at 12:03 EST , Echocardiogram 11/19/22 13:44 Interpretation Summary Normal LV size. Mild concentric left ventricular hypertrophy. The estimated ejection fraction is 15 %. Severe segmental systolic dysfunction (see wall motion). The left atrium is mildly enlarged. There is moderate to severe mitral annular calcification. Moderate (2+) anteriorly directed mitral valve insufficiency. Stage 2 diastolic dysfunction. Contrast injection was performed. Ordering Physician: Dylon Benito Referring Physician: ANTWON MUÑOZ Performed By: Blaire White RDCS Physical Exam Const alert, oriented x3 and no apparent distress General Appearance: cooperative HEENT normocephalic Mouth: dry mucous membranes Eyes PERRL, EOMs intact bilaterally and conjunctivae normal Neck supple and no JVD Resp normal respiratory effort, no retractions and no use of accessory muscles Resp Narrative: Diminished Auscultation: Negative for crackles, rales, rhonchi or wheezes Cardio regular rate, regular rhythm, S1 normal heart sound, S2 normal heart sound and no murmurs GI soft to palpation, non-tender and non-distended; Negative for hepatosplenomegaly Extremity Extremity Narrative: Trace lower extremity edema General Extremity: Negative for clubbing or cyanosis Skin no rashes or lesions noted Neuro no focal motor deficits and no sensory deficits noted Psych Mood & Affect: anxious Assessment & Plan Assessment/Plan (1) Non-ST elevated myocardial infarction: PLAN: She presents with mild chest discomfort abnormal cardiac enzymes consistent with a non-ST elevation myocardial infarction. Her EKG does demonstrate poor R wave progression. Her echocardiogram demonstrates severe left ventricular systolic dysfunction with wall motion abnormalities. * My suspicion is that she has had a recent non-ST elevation myocardial infarction * The plan will be to continue with aspirin * Continue heparin for now * Will consider left heart catheterization when clinically stable (2) CHF (congestive heart failure): PLAN: She does have evidence of congestive heart failure with reduced ejection fraction [place] Heart Association class IV ACC stage D. Will recommend intravenous diuresis Low-dose beta-david and titrate upwards as appropriate Add SGLT2 inhibitor Add Entresto during this hospitalization Her ejection fraction is estimated to be less than 25% (3) History of hypertension: PLAN: She presented with an elevated blood pressure which appears to be better at this time but will recommend continuation of the beta-david and the addition of Entresto.
[2022-11-20] MEDS: Carvedilol 3.125 MG TABLET PO ×2 (10:10→21:31)
[2022-11-20] MEDS: Empagliflozin 10 MG Tablet PO (10:10)
[2022-11-20] MEDS: Furosemide 40 MG/4 ML Vial IV ×2 (10:10→17:21)
[2022-11-20] MEDS: Timolol 0.5% 5ML OPTH.BTL 1 DRP EACH EYE ×2 (10:11→21:32)
[2022-11-20] MEDS: Losartan Potassium 50 MG Tablet PO (10:11)
--- NOTE | 2022-11-20 11:07 | PN.HOSP_ITS ---
Subjective Subjective Breathing little bit better and was able to sleep last night with a dose of Ativan Objective Data Objective Data Vital Signs: Vital Signs Temp Pulse Resp BP Pulse Ox O2 Del Method 98.1 F 71 16 143/76 H 91 Room Air 11/20/22 08:29 11/20/22 08:29 11/20/22 08:29 11/20/22 08:29 11/20/22 08:29 11/20/22 08:30 Oxygen Delivery Method Room Air Weight: 170 lb 3.15 oz Body Mass Index (BMI) 29.2 Intake & Output: Intake and Output for Last 24 Hours 11/19/22 11/20/22 11/21/22 03:59 03:59 03:59 Intake Total 331.1 / 331.1 177.15 / 177.15 Output Total 0 / 0 Balance 331.1 / 331.1 177.15 / 177.15 Lab / Micro Data Result Diagrams: 11/20/22 03:34 11/20/22 03:34 Labs: Laboratory Results - last 24 hr 11/19/22 10:50: WBC 10.7, RBC 4.86, Hgb 14.9, Hct 44.4, MCV 91.4, MCH 30.7, MCHC 33.6, RDW Std Deviation 44.1 H, RDW Coeff of Geovanna 13.2, Plt Count 310, MPV 10.8, Immature Gran % (Auto) 0.400, Neut % (Auto) 73.1 H, Lymph % (Auto) 19.1, [place] % (Auto) 5.6, Eos % (Auto) 1.1, Baso % (Auto) 0.7, Absolute Neuts (auto) 7.9 H, Absolute Lymphs (auto) 2.05, Nucleated RBC % 0 11/19/22 10:50: D-Dimer Quant (PE/DVT) 0.89 H* 11/19/22 10:50: Sodium 128 L, Potassium 4.4, Chloride 93 L, Carbon Dioxide 26.0, Anion Gap 9, BUN 28 H, Creatinine 1.39 H, Estim Creat Clear Calc 23.14, Est GFR (MDRD) Af Amer 47 L, Est GFR (MDRD) Non-Af 38 L, BUN/Creatinine Ratio 20.1 H, Glucose 241 H, Calcium 9.6, Total Bilirubin 0.90, AST 44 H, ALT 38, Alkaline Phosphatase 88, Troponin I High Sens 2739 H*, Total Protein 7.7, Albumin 3.7, Globulin 4.0, Albumin/Globulin Ratio 0.9 11/19/22 10:50: B-Natriuretic Peptide 1520.2 H 11/19/22 10:50: PT 12.4, INR 1.0, APTT 31.1 11/19/22 16:52: POC Glucose 273 H 11/19/22 16:55: Troponin I High Sens 1792 H* 11/19/22 18:46: APTT > 200.0 H* 11/19/22 18:46: Troponin I High Sens 2404 H* 11/19/22 21:58: POC Glucose 232 H 11/19/22 22:09: Urine Color Yellow, Urine Clarity Clear, Urine pH 6.0, Ur Specific [place] 1.010, Urine Protein Negative, Urine Glucose (UA) Normal, Urine Ketones Negative, Urine Occult Blood Negative, Urine Nitrite Negative, Urine Bilirubin Negative, Urine Urobilinogen Normal, Ur Leukocyte Esterase Negative, Urine RBC 0 SEEN, Urine WBC 0 SEEN, Ur Squamous Epith Cells 0 SEEN, Urine Bacteria 0 SEEN, Urine Mucus 0 SEEN 11/19/22 23:10: Troponin I High Sens 5671 H* 11/20/22 01:09: POC Glucose 172 H 11/20/22 03:34: WBC 9.0, RBC 4.34, Hgb 13.3, Hct 39.5, MCV 91.0, MCH 30.6, MCHC 33.7, RDW Std Deviation 43.1, RDW Coeff of Geovanna 13.1, Plt Count 276, MPV 10.2, Immature Gran % (Auto) 0.400, Neut % (Auto) 51.3, Lymph % (Auto) 37.1, [place] % (Auto) 9.4, Eos % (Auto) 1.0, Baso % (Auto) 0.8, Absolute Neuts (auto) 4.6, Absolute Lymphs (auto) 3.33, Nucleated RBC % 0 11/20/22 03:34: Sodium 133 L, Potassium 4.2, Chloride 95 L, Carbon Dioxide 29.0, Anion Gap 9, BUN 34 H, Creatinine 1.52 H, Estim Creat Clear Calc 24.22, Est GFR (MDRD) Af Amer 42 L, Est GFR (MDRD) Non-Af 35 L, BUN/Creatinine Ratio 22.4 H, Glucose 96, Calcium 9.1 11/20/22 03:34: APTT 158.2 H* 11/20/22 06:18: POC Glucose 85 Micro: Microbiology 11/19/22 10:50 Nasal Secretion SARS-CoV-2 & FLU Antigen (Rapid) - Final Radiography Diagnostic Testing: Radiology Impression Chest CTA 11/19/22 11:38 IMPRESSION: Moderate bilateral pleural effusions right greater than left with bibasilar compressive atelectasis. Patchy areas of confluence in the right upper lobe as well as lingular segment of the left upper lobe. Mild CHF. Electronically Signed: Mike Toledo MD at 12:32 EST , Chest X-Ray 11/19/22 11:40 IMPRESSION: CHF with bibasilar atelectasis and blunting of both costophrenic angles. Electronically Signed: Mike Toledo MD at 12:03 EST , Echocardiogram 11/19/22 13:44 Interpretation Summary Normal LV size. Mild concentric left ventricular hypertrophy. The estimated ejection fraction is 15 %. Severe segmental systolic dysfunction (see wall motion). The left atrium is mildly enlarged. There is moderate to severe mitral annular calcification. Moderate (2+) anteriorly directed mitral valve insufficiency. Stage 2 diastolic dysfunction. Contrast injection was performed. Ordering Physician: Dylon Benito Referring Physician: ANTWON MUÑOZ Performed By: Christopher, Blaire, RDCS Rhythm Strip Rhythm Strip: Sinus Rhythm Physical Exam Narrative General: Alert, Oriented x3, Cooperative, No apparent distress HEENT: Atraumatic, PERRLA, EOMI, Normocephalic Oral: Dry mucosa Neck: Supple, No JVD Lungs: Diminished, Normal air movement, No rhonchi, No wheeze, No rales Cardiovascular: Regular rate, Regular Rhythm, Normal S1, Normal S2, No murmurs Abdomen: Soft, Non Tender, Non-Distended, No Hepato-splenomegaly Extremities: Trace edema, Capillary Refill Less than 3 Seconds Skin: No rashes, No breakdown Musculoskeletal: No Tenderness to Palpation of Joints or Extremities Neurological: Cranial nerves II-XII grossly intact, Motor Exam 5/5 strength throughout, Sensory exam intact to light touch and pain Psych/Mental Status: Anxious Assessment & Plan Assessment/Plan (1) Non-ST elevated myocardial infarction: (2) CHF (congestive heart failure): PLAN: Plan 1. Non-STEMI with acute systolic and diastolic CHF exacerbation ? Consult cardiology for heart cath once stable ? Continue with heparin drip and continue with IV Lasix, she was also started on Coreg ? Continue with losartan and an SGLT2 inhibitor ? Continue with aspirin ? Her kidney function is elevated but it is unclear as to whether or not this is her baseline or an ALMITA as we have no previous lab work, her creatinine on admission is 1.39 ? Echo with an EF of 15% and stage II diastolic dysfunction 2. DM2 ? Stable, Accu-Cheks AC at bedtime ? Continue sliding scale insulin and the long-acting insulin ? Will make adjustments as necessary 3. Hypothyroidism ? Stable ? Continue with Synthroid 4. Anxiety ? She did have rapid speech and perseverated on certain issues, she was also somewhat restless in bed she does have very poor insight into her mental health and with family at bedside it does appear that she has OCD and hoarding tendencies I discussed with her the possibility of being started on an antidepressant but she said no and that she would not take anything on discharge ? We will provide some Ativan to help her sleep while here in the hospital DVT: Heparin drip Charges/Coding Visit Charges Inpatient E&M: 43040 Subs Hosp L2
[2022-11-20 11:40] LABS: Bedside Glucose 190 mg/dL (74-106)
--- NOTE | 2022-11-20 12:40 | CASEMGMT ---
RHIANNON BARNEY Face to Face with patient for initial transition planning/care coordination assessment. RN CM introduced self and role at [facility]. Patient lying in bed, alert and oriented, niece at bedside. Patient willing to participate in assessment and is able to answer all questions appropriately. Care providers, pharmacy, and demographics verified. Patient wishes to discharge home, will monitor for HHC. Patient states she has no further needs or concerns at this time. CM to follow for discharge planning needs that may arise. PCP: Mandi Specialists: enedelia Hernandes Pharmacy: [facility] Insurance: [facility], [facility] Prescription Benefit: yes Living Will/HPOA: yes, Sadie Banda, niece LNOK: nieces, sister Living Arrangements: Patient lives alone in a 2 story home with bed and bath on first floor with 6 steps to enter the home. Patient states she is independent at home. Transportation: self, friend DME/HHC: Patient states she has cane, wheelchair, grab bars, glucometer and supplies. Patient denies previous HHC or SNF. Will monitor for HHC at discharge. Disposition Plan: Patient to discharge home with family support and follow-up plans in place. Will monitor for HHC. Glenna ALCALA, RN, CM
[2022-11-20 12:50] LABS: Partial Thromboplast Time 44.4 Seconds (24.1-36.2)
[2022-11-20] MEDS: Heparin Injection (Vial) 5,000 UNIT/ML VIAL IV ×2 (13:02→21:28)
--- NOTE | 2022-11-20 14:16 | CHAPLAIN ---
Type of Pastoral Visit _x__ Initial Visit ___ Follow-up Visit ___ On-call Visit ___ General Patient Visit ___ Spiritual Assessment ___ Family Conference ___ Bereavement ___ Rapid Response ___ Code Blue ___ Other (describe below) Pastoral Care Referral From _x__ Patient ___ Family ___ Nurse ___ Physician ___ Director Of Veterans Affairs ___ Hearing Instrument Specialist ___ Other (describe below) Sacrament/Intervention _x__ Active listening ___ Anointing ___ Pentecostal ___ Bereavement ___ Communion ___ Alyssa exploration ___ ___ Life review ___ Prayer ___ Reconciliation ___ Sacrament of Sick ___ Supportive presence ___ Wedding ___ Other (describe below) Pastoral Comments patient describes her experience and how surprised she was after a life of great health and a history of family with longevity; family members have been visiting with her today; no other needs at this time
--- NOTE | 2022-11-20 14:51 | NURSING ---
Pt's niece/POA, Sadie Banda, brought in pt's living will and POA paperwork. [facility]'s current contact information is [phone]. Information given to registration to be added to chart.
[2022-11-20] MEDS: Nystatin Powder 15gm Bottle 1 APPLIC TOPICAL ×2 (14:58→21:32)
[2022-11-20 16:50] LABS: Bedside Glucose 297 mg/dL (74-106)
--- NOTE | 2022-11-20 19:54 | NURSING ---
call placed to lab aPTT is in progress in laboratory.
[2022-11-20 19:59] LABS: Partial Thromboplast Time 53.3 Seconds (24.1-36.2)
--- NOTE | 2022-11-20 20:17 | NURSING ---
Verbal consent signed with Sadie MENA, consent given for heart cath in AM and blood transfusion if needed. consent verified with Joanne JURADO Charge nurse.
[2022-11-20] MEDS: MELATONIN 3 MG TABLET PO (21:32)
[2022-11-20] MEDS: Insulin Glargine-YFGN 100 UNIT/ML Pen 10 UNIT SC (21:36)
[2022-11-20] MEDS: HEPARIN/D5w 25,000 UNITS 25,000 UNITS/250 ML IV.SOLN. 8 UNITS CONT INF (22:42)
[2022-11-20 22:50] LABS: Bedside Glucose 200 mg/dL (74-106)
[2022-11-21] VITALS (11 sets, daily range): BP systolic 111–153; BP diastolic 43–116; PULSE 51–69; RESP 16–18; TEMP 36.4–36.8; O2SAT 94–99
[2022-11-21 04:22] LABS: Absolute Lymphocyte Count 3.43 X10^3/uL (0.83-4.51); Absolute Neutrophil Count 5.2 X10^3/uL (2.0-7.7); Eosinophil# 0.16 X10^3/uL; Eosinophils% 1.6 % (0-5); Hematocrit 39.4 % (37-47); Hemoglobin 13.5 g/dL (12.0-15.0); Lymphocyte # 3.43 X10^3/ul (0.83-4.51); Lymphocyte % 34.7 % (19-41); Mean Corp Hgb Conc 34.3 g/dL (32-36); Mean Corpuscular Hgb 30.8 pg (27.0-32.0); Monocyte# 0.99 X10^3/uL; NRBC Flagged by Analyzer 0 % (0-5); Neutrophil # 5.18 X10^3/uL (2.7-7.7); Neutrophil % 52.4 % (47-70); Platelet Count 282 K/mm3 (150-450); RBC Distribution Width CV 13.4 % (11.6-14.6); Red Blood Count 4.38 M/mm3 (4.2-5.4); White Blood Count 9.9 K/mm3 (4.4-11.0)
[2022-11-21] MEDS: Dextrose 50%-Water 25 GM/50 ML DISP.SYRIN IV ×2 (04:45)
[2022-11-21 04:47] LABS: Anion Gap 10 (5-15); BUN 50 mg/dL (7-18); Calcium,Total 9.4 mg/dL (8.5-10.1); Chloride 97 mmol/L (98-107); Creatinine, Serum 1.92 mg/dL (0.55-1.02); EST Glomerular Filtration Rate 27 mL/min (>60); Est Glom Filt Rate - Afr Amer 32 mL/min (>60); Estimated Creatinine Clearance 19.17 ml/min; Glucose 62 mg/dL (74-106); Potassium 3.7 mmol/L (3.5-5.1); Sodium Level 136 mmol/L (136-145)
[2022-11-21 05:11] LABS: Bedside Glucose 66 mg/dL (74-106)
[2022-11-21 05:43] LABS: Partial Thromboplast Time 91.6 Seconds (24.1-36.2)
--- NOTE | 2022-11-21 05:55 | EKG12_ITS ---
Test Reason : AM EKG Blood Pressure : / mmHG Vent. Rate : 059 BPM Atrial Rate : 059 BPM P-R Int : 214 ms QRS Dur : 124 ms QT Int : 484 ms P-R-T Axes : 057 009 111 degrees QTc Int : 479 ms Sinus bradycardia with 1st degree A-V block Left ventricular hypertrophy with QRS widening and repolarization abnormality ( Brayan product ) Cannot rule out Septal infarct (cited on or before 19-NOV-2022) Abnormal ECG When compared with ECG of 19-NOV-2022 10:36, QRS duration has increased Confirmed by VANI FORD, NHAN ([id number]), legal editor RICKI FERNANDEZ ([id number]) on 11/22/2022 8:27:04 AM Referred By: Confirmed By:NHAN LUDWIG MD
[2022-11-21] MEDS: Nystatin Powder 15gm Bottle 1 APPLIC TOPICAL ×2 (07:06→14:12)
[2022-11-21] MEDS: Levothyroxine 125 MCG Tablet 62.5 MCG PO (07:06)
[2022-11-21] MEDS: Losartan Potassium 50 MG Tablet PO ×2 (07:07)
[2022-11-21] MEDS: Aspirin E.C. 81 MG Tablet PO (07:08)
[2022-11-21] MEDS: Carvedilol 3.125 MG TABLET PO (07:08)
[2022-11-21 07:35] LABS: Bedside Glucose 213 mg/dL (74-106)
[2022-11-21 07:35] LABS: Bedside Glucose 214 mg/dL (74-106)
[2022-11-21] MEDS: 0.9% Normal Saline 1,000 ML 15 ML IV (08:24)
--- NOTE | 2022-11-21 10:20 | PCM.PN.HOSP ---
Subjective Subjective Doing well, denies any shortness of breath or chest pain Objective Data Objective Data Vital Signs: Vital Signs Temp Pulse Resp BP Pulse Ox O2 Del Method 97.5 F L 69 18 146/69 H 98 Room Air 11/21/22 07:04 11/21/22 07:04 11/21/22 07:04 11/21/22 07:04 11/21/22 07:04 11/21/22 08:10 Oxygen Delivery Method Room Air Weight: 166 lb 0.129 oz Body Mass Index (BMI) 29.2 Intake & Output: Intake and Output for Last 24 Hours 11/20/22 11/21/22 11/22/22 03:59 03:59 03:59 Intake Total 331.1 / 331.1 895.40 / 895.40 177.13 / 177.13 Output Total 1900 / 1900 300 / 300 Balance 331.1 / 331.1 -1004.60 / -1004.60 -122.87 / -122.87 Lab / Micro Data Result Diagrams: 11/21/22 03:26 11/21/22 03:26 Labs: Laboratory Results - last 24 hr 11/20/22 11:15: POC Glucose 190 H 11/20/22 12:14: APTT 44.4 H 11/20/22 16:20: POC Glucose 297 H 11/20/22 19:00: APTT 53.3 H 11/20/22 21:36: POC Glucose 200 H 11/21/22 03:26: WBC 9.9, RBC 4.38, Hgb 13.5, Hct 39.4, MCV 90.0, MCH 30.8, MCHC 34.3, RDW Std Deviation 44.0 H, RDW Coeff of Geovanna 13.4, Plt Count 282, MPV 11.0, Immature Gran % (Auto) 0.300, Neut % (Auto) 52.4, Lymph % (Auto) 34.7, [place] % (Auto) 10.0, Eos % (Auto) 1.6, Baso % (Auto) 1.0, Absolute Neuts (auto) 5.2, Absolute Lymphs (auto) 3.43, Nucleated RBC % 0 11/21/22 03:26: Sodium 136, Potassium 3.7, Chloride 97 L, Carbon Dioxide 29.0, Anion Gap 10, BUN 50 H, Creatinine 1.92 H, Estim Creat Clear Calc 19.17, Est GFR (MDRD) Af Amer 32 L, Est GFR (MDRD) Non-Af 27 L, BUN/Creatinine Ratio 26.0 H, Glucose 62 L, Calcium 9.4 11/21/22 03:26: APTT 91.6 H* 11/21/22 04:34: POC Glucose 66 L 11/21/22 06:05: POC Glucose 213 H 11/21/22 07:04: POC Glucose 214 H Micro: Microbiology 11/19/22 10:50 Nasal Secretion SARS-CoV-2 & FLU Antigen (Rapid) - Final Rhythm Strip Rhythm Strip: Sinus Rhythm Physical Exam Narrative General: Alert, Oriented x3, Cooperative, No apparent distress HEENT: Atraumatic, PERRLA, EOMI, Normocephalic Oral: Moist mucosa Neck: Supple, No JVD Lungs: Diminished, Normal air movement, No rhonchi, No wheeze, No rales Cardiovascular: Regular rate, Regular Rhythm, Normal S1, Normal S2, No murmurs Abdomen: Soft, Non Tender, Non-Distended, No Hepato-splenomegaly Extremities: No edema, Capillary Refill Less than 3 Seconds Skin: No rashes, No breakdown Musculoskeletal: No Tenderness to Palpation of Joints or Extremities Neurological: Cranial nerves II-XII grossly intact, Motor Exam 5/5 strength throughout, Sensory exam intact to light touch and pain Psych/Mental Status: Anxious Assessment & Plan Assessment/Plan (1) Non-ST elevated myocardial infarction: (2) CHF (congestive heart failure): PLAN: Plan 1. Non-STEMI with acute systolic and diastolic CHF exacerbation ? Consult cardiology for heart cath once stable ? Continue with heparin drip, she was also started on Coreg ? Continue with losartan and an SGLT2 inhibitor ? Continue with aspirin ? She now has an ALMITA likely secondary to the Lasix, will hold and recheck renal function in the morning ? Echo with an EF of 15% and stage II diastolic dysfunction 2. DM2 ? Stable, Accu-Cheks AC at bedtime ? Continue sliding scale insulin and the long-acting insulin ? Will make adjustments as necessary 3. Hypothyroidism ? Stable ? Continue with Synthroid 4. Anxiety ? She did have rapid speech and perseverated on certain issues, she was also somewhat restless in bed she does have very poor insight into her mental health and with family at bedside it does appear that she has OCD and hoarding tendencies I discussed with her the possibility of being started on an antidepressant but she said no and that she would not take anything on discharge ? We will provide some Ativan to help her sleep while here in the hospital DVT: Heparin drip Charges/Coding Visit Charges Inpatient E&M: 21047 Subs Hosp L2
[2022-11-21 11:11] LABS: Bedside Glucose 221 mg/dL (74-106)
--- NOTE | 2022-11-21 12:29 | CM.UR ---
RHIANNON BARNEY NOTE: PT/OT notes reviewed. PT rec OP therapy. OT states no additional therapy recommended. RHIANNON CM to room to discuss discharge planning/therapies recommendations. Pt is out of room @ this time for heart cath. Diann ALCALA RN CM
--- NOTE | 2022-11-21 12:44 | PN.CARD_ITS ---
Subjective Subjective Patient seen and related. Appears to be doing well. Underwent left heart catheterization today Objective Data Vital Signs: Vital Signs Temp Pulse Resp BP Pulse Ox O2 Del Method 98.1 F 64 16 153/56 H 96 Room Air 11/21/22 10:47 11/21/22 10:47 11/21/22 10:47 11/21/22 10:47 11/21/22 10:47 11/21/22 10:47 Oxygen Delivery Method Room Air Weight: 166 lb 0.129 oz Body Mass Index (BMI) 29.2 Intake & Output: Intake and Output for Last 24 Hours 11/19/22 11/20/22 11/21/22 23:59 23:59 23:59 Intake Total 331.1 / 331.1 775.40 / 895.40 297.13 / 297.13 Output Total 500 / 1900 1700 / 1700 Balance 331.1 / 331.1 275.40 / -1004.60 -1402.87 / -1402.87 Lab / Micro Data Result Diagrams: 11/21/22 03:26 11/21/22 03:26 Labs: Laboratory Results - last 24 hr 11/20/22 12:14: APTT 44.4 H 11/20/22 16:20: POC Glucose 297 H 11/20/22 19:00: APTT 53.3 H 11/20/22 21:36: POC Glucose 200 H 11/21/22 03:26: WBC 9.9, RBC 4.38, Hgb 13.5, Hct 39.4, MCV 90.0, MCH 30.8, MCHC 34.3, RDW Std Deviation 44.0 H, RDW Coeff of Geovanna 13.4, Plt Count 282, MPV 11.0, Immature Gran % (Auto) 0.300, Neut % (Auto) 52.4, Lymph % (Auto) 34.7, [place] % (Auto) 10.0, Eos % (Auto) 1.6, Baso % (Auto) 1.0, Absolute Neuts (auto) 5.2, Absolute Lymphs (auto) 3.43, Nucleated RBC % 0 11/21/22 03:26: Sodium 136, Potassium 3.7, Chloride 97 L, Carbon Dioxide 29.0, Anion Gap 10, BUN 50 H, Creatinine 1.92 H, Estim Creat Clear Calc 19.17, Est GFR (MDRD) Af Amer 32 L, Est GFR (MDRD) Non-Af 27 L, BUN/Creatinine Ratio 26.0 H, Glucose 62 L, Calcium 9.4 11/21/22 03:26: APTT 91.6 H* 11/21/22 04:34: POC Glucose 66 L 11/21/22 06:05: POC Glucose 213 H 11/21/22 07:04: POC Glucose 214 H 11/21/22 10:49: POC Glucose 221 H Rhythm Strip Rhythm Strip: Sinus Rhythm Cardiology Labs/Tests 11/20/22 12:14: APTT 44.4 H 11/20/22 19:00: APTT 53.3 H 11/21/22 03:26: WBC 9.9, RBC 4.38, Hgb 13.5, Hct 39.4, MCV 90.0, MCH 30.8, MCHC 34.3, Plt Count 282, MPV 11.0, Immature Gran % (Auto) 0.300, Neut % (Auto) 52.4, Lymph % (Auto) 34.7, [place] % (Auto) 10.0, Eos % (Auto) 1.6, Baso % (Auto) 1.0, Absolute Neuts (auto) 5.2, Nucleated RBC % 0 11/21/22 03:26: Sodium 136, Potassium 3.7, Chloride 97 L, Carbon Dioxide 29.0, Anion Gap 10, BUN 50 H, Creatinine 1.92 H, Est GFR (MDRD) Af Amer 32 L, Est GFR (MDRD) Non-Af 27 L, BUN/Creatinine Ratio 26.0 H, Glucose 62 L, Calcium 9.4 11/21/22 03:26: APTT 91.6 H* Rhythm: EKG: ECHO: Stress Test: Cardiac Cath: PCI: CT Surgery: Holter monitor: EPS: PPM: CXR: Chest CT Scan: Physical Exam Const alert, oriented x3 and no apparent distress General Appearance: cooperative HEENT normocephalic Mouth: dry mucous membranes Eyes PERRL, EOMs intact bilaterally and conjunctivae normal Neck supple and no JVD Resp normal respiratory effort, no retractions and no use of accessory muscles Resp Narrative: Diminished Auscultation: Negative for crackles, rales, rhonchi or wheezes Cardio regular rate, regular rhythm, S1 normal heart sound, S2 normal heart sound and no murmurs GI soft to palpation, non-tender and non-distended; Negative for hepatosplenomegaly Extremity Extremity Narrative: Trace lower extremity edema General Extremity: Negative for clubbing or cyanosis Skin no rashes or lesions noted Neuro no focal motor deficits and no sensory deficits noted Psych Mood & Affect: anxious Assessment & Plan Assessment/Plan (1) Non-ST elevated myocardial infarction: PLAN: She presents with mild chest discomfort abnormal cardiac enzymes consistent with a non-ST elevation myocardial infarction. Her EKG does demonstrate poor R wave progression. Her echocardiogram demonstrates severe left ventricular systolic dysfunction with wall motion abnormalities. * Left heart catheterization today demonstrated the following: Ostial 30% left main coronary stenosis. Left anterior descending artery is totally occluded in the midsegment. High-grade proximal circumflex artery stenosis. Right coronary artery which is totally occluded. Left to right collaterals. Based on the above angiographic findings the patient will be transferred to a tertiary care facility for high risk coronary to bypass surgery Above discussed with patient and relatives. Hospitalist also updated (2) CHF (congestive heart failure): PLAN: She does have evidence of congestive heart failure with reduced ejection fraction [place] [employer] class IV ACC stage D. Will recommend intravenous diuresis Low-dose beta-david and titrate upwards as appropriate Add SGLT2 inhibitor Add Entresto during this hospitalization Her ejection fraction is estimated to be less than 25% (3) History of hypertension: PLAN: She presented with an elevated blood pressure which appears to be better at this time but will recommend continuation of the beta-david and the addition of Entresto.
--- NOTE | 2022-11-21 13:00 | CL.D_ITS ---
Patient Name: GERMÁN HENSLEY Study Date: 11/21/2022 Performing: Issac Levine MD Ht: 64 inches 162.56 cm : 1940 Wt: 166.2 lbs 75.3 kg Age: 82 Gender: female BSA: 1.81 PROCEDURE(S) PERFORMED [id number])[facility] CLINICAL PROFILE AND INDICATIONS Indications: Suspected CAD, Cardiomyopathy Heart Failure: NYHA Class: 3, Newly Diagnosed: Yes, Heart Failure Type: Systolic Stress/Imaging Stress/Image Study Performed: No CAD Presentations: Non-STEMI. Symptom onset Date/Time: 11/19/22 CONCLUSIONS Severe triple-vessel disease with ostial left main and totally occluded left anterior descending artery, severe left circumflex artery disease, totally occluded right coronary artery with [id number] collaterals and severe left ventricular systolic dysfunction. RECOMMENDATIONS Surgery consult for coronary revascularization DESCRIPTION OF PROCEDURE The patient arrived to the procedure lab. The risks and benefits of the procedure as well as a full description of our services here and current unavailability of surgical backup were fully explained to the patient and/or their significant other prior to the catheterization. The Timeout was completed, verifying the correct patient and procedure. The patient's procedural site was prepped and draped in the usual fashion. Local anesthetic was given subcutaneously to right radial region with Lidocaine 2%. Using a modified Seldinger technique, arterial access was obtained via the right radial artery, a 6Fr sheath was inserted. Left Coronary Artery selective angiography was performed in multiple views using a 5 Fr. 4.0 Redwood catheter. Right Coronary Artery selective angiography was then performed in multiple views using a 5 Fr. 4.0 Redwood catheter.The arterial sheath was pulled and a TR Band was applied for hemostasis CORONARY ANGIOGRAPHY DOMINANCE: Right Dominant LEFT HEART ASSESSMENT Left Ventricular Ejection Fraction: by Echo 15 % Inferior Basal Dyskinesis - Moderate Depressed Left Ventricular systolic function LEFT MAIN: Ostial 30% stenosis distal 40% stenosis LEFT ANTERIOR DESCENDING ARTERY: PROX LAD: Severe diffuse disease involving the proximal segment and then totally occluded in the midsegment with distal ghost collaterals CIRCUMFLEX ARTERY: MID CIRC: 80 % Stenosis OM 1: Proximal - 80 % Stenosis RIGHT CORONARY ARTERY: PROX RCA: is occluded COLLATERAL FLOW: Collateral flow from Left to Right VALVE FINDINGS: Mitral Valve Calcification Moderate COMPLICATIONS No Complications PROCEDURE MEDICATIONS Versed 1 mg IV Fentanyl 25 mcg IV Oxygen: 2 L/min via nasal cannula SUMMARY OF HEMODYNAMIC DATA Time AIR REST ECG 11:54:29 AO 116/41 (70) SA 12:18:31 AO 123/55 (84) 12:24:44 Signed By Issac Levine MD On 11/21/2022 13:00:26 Issac Levine MD
[2022-11-21] MEDS: Timolol 0.5% 5ML OPTH.BTL 1 DRP EACH EYE (14:11)
[2022-11-21] MEDS: Empagliflozin 10 MG Tablet PO (14:11)
[2022-11-21 16:16] LABS: Bedside Glucose 362 mg/dL (74-106)
[2022-11-21] MEDS: Insulin Lispro 100 UNIT/ML INSULN.PEN SC (16:32)
--- NOTE | 2022-11-21 19:04 | NURSING ---
Report attempted to be called to [facility] at this time.
--- NOTE | 2022-11-21 19:30 | NURSING ---
Attempted to call report to [facility]. Placed on hold no nurse answered line. Will reattempt.
--- NOTE | 2022-11-21 19:53 | NURSING ---
Update called to patients pooja/[facility] for transport. Obtained telephone consent for transfer.
--- NOTE | 2022-11-21 20:38 | NURSING ---
IV site flushed to rt ac, leaking new site #20 inserted x2 attempts to left ac. Report was called to Pablo JURADO at cc for transfer, all questions answered . Pt was transferred with belongings via physicians ambulance at this time.
--- NOTE | 2022-11-22 07:03 | DS.PCM_ITS ---
Providers Date of Admission: 11/19/22 Date of Discharge: 11/21/22 Primary Care Physician: Dr. Dara Raymond, DO Consultations 11/19/22 13:44 Consult: Cardiology Routine Consulting Provider: Issac Levine Reason for Consult: NSTEMI EMERGENT Consult: No MD Notified: Yes Date Notified: 11/19/22 Time Notified: 12:45 Method of Notification: ED Physician Initiated Reason For Visit: NSTEMI Diagnosis Discharge Diagnosis (1) Non-ST elevated myocardial infarction: Status: Acute Code(s): I21.4 - Non-ST elevation (NSTEMI) myocardial infarction (2) CHF (congestive heart failure): Status: Acute Code(s): I50.9 - Heart failure, unspecified (3) History of hypertension: Status: Acute Code(s): Z86.79 - Personal history of other diseases of the circulatory system Plan 1. Non-STEMI with acute systolic and diastolic CHF exacerbation ? Consult cardiology for heart cath once stable ? Continue with heparin drip, she was also started on Coreg ? Continue with losartan and an SGLT2 inhibitor ? Continue with aspirin ? She now has an ALMITA likely secondary to the Lasix, will hold and recheck renal function in the morning ? Echo with an EF of 15% and stage II diastolic dysfunction 2. DM2 ? Stable, Accu-Cheks AC at bedtime ? Continue sliding scale insulin and the long-acting insulin ? Will make adjustments as necessary 3. Hypothyroidism ? Stable ? Continue with Synthroid 4. Anxiety ? She did have rapid speech and perseverated on certain issues, she was also somewhat restless in bed she does have very poor insight into her mental health and with family at bedside it does appear that she has OCD and hoarding tendencies I discussed with her the possibility of being started on an antid epressant but she said no and that she would not take anything on discharge ? We will provide some Ativan to help her sleep while here in the hospital DVT: Heparin drip Medications at Discharge Home Medications valsartan 160 mg tablet (Diovan) 160 mg PO QDAY 02/26/18 Lantus Solostar U-100 Insulin 100 unit/mL (3 mL) subcutaneous pen (insulin glargine) See Rx Instructions subcut DAILY #15 mL 10/03/20 insulin lispro 100 unit/mL subcutaneous pen (Humalog KwikPen (U-100) Insulin) See Rx Instructions subcut TID e10.65 #30 mL 10/03/20 latanoprost 0.005 % eye drops 1 drp ophthalmic (eye) QHS GLUCOMA 01/02/21 timolol maleate 0.5 % eye drops 1 drp ophthalmic (eye) BID 01/02/21 levothyroxine 125 mcg tablet 125 mcg PO .8 tablets per week 09/07/21 Hospital Course Operations None Procedures 2-D Echocardiogram and Cardiac catheterization Summary of Care Provided Minutes Spent on Discharge: 40 Hospital Course: Per HPI: GERMÁN HENSLEY, is a 82 F who presents to the hospital with shortness of breath and orthopnea.? She states that she has been noticing increased pressure and dyspnea on exertion for the last couple of days but it was really bad yesterday and then even worse today.? She has difficulty laying down and feels better when she is sitting upright.? In the ER her troponin was found to be 2700 with an elevated BNP to 1520, we do not have baselines for either of those labs. Hospital Course: 1. Non-STEMI with acute systolic and diastolic CHF exacerbation/ALMITA?82-year-old female presents to the hospital with shortness of breath, chest pressure and orthopnea. Troponins were significantly elevated so we proceeded with an echo which demonstrated an EF of around 15% with stage II diastolic dysfunction. She was continued on a heparin drip and based on the EF was started on an SGLT2 and have her as well as Coreg. She was also placed Lasix however her creatinine antonio from 1.3-1.92 consistent with an ALMITA therefore her Lasix was discontinued presents with continued aspirin and had a heart cath which demonstrated is severe diffuse disease in the proximal LAD as well as an 80% stenosis in the mid circumflex as well as an 80% stenosis in the proximal OM1, her proximal RCA was occluded. Cardiology discussed the case with [facility] who accepted the patient in transfer for evaluation given her triple-vessel disease. The patient was made aware of this and did accept transfer to the [facility]. 2. Type 2 diabetes, hypothyroidism, anxiety are all chronic medical conditions which complicate her care. Her home medications were continued where appropri ate. There is some concern as to her living conditions, family has not been allowed in her house for several years and she does have indications of hoarding her anxiety is fairly extensive but she has very poor insight into it and when offered medications to assist she said that she would not take anything on discharge. She did receive a dose of Ativan in the hospital which seemed to help at night. Weight / BMI Weight Weight: 166 lb 0.129 oz Body Mass Index (BMI) 29.2 ABG / Lab / Microbiology Data Result Diagrams: 11/21/22 03:26 11/21/22 03:26 Laboratory: Laboratory Results - last 24 hr 11/21/22 06:05: POC Glucose 213 H 11/21/22 07:04: POC Glucose 214 H 11/21/22 10:49: POC Glucose 221 H 11/21/22 15:38: POC Glucose 362 H Microbiology: Microbiology 11/19/22 10:50 Nasal Secretion SARS-CoV-2 & FLU Antigen (Rapid) - Final Meaningful Use Info Meaningful Use Diagnoses (Choose all that apply): None applicable Discharge Plan Admission Admit Date/Time: 11/19/22 12:42 Attending Provider: Dylon Benito Primary Care Provider: Dara Raymond Consulting Providers: Issac Levine Discharge Orders/Prescriptions Prescriptions: No Action valsartan [Diovan] 160 mg tablet 160 mg PO QDAY Lantus Solostar U-100 Insulin 100 unit/mL (3 mL) insulin pen See Rx Instructions SC DAILY Qty: 15 0RF Dose Instruction: SC DAILY Rx Instructions: 13 units in am and 10 units in pm SC DAILY Humalog KwikPen Insulin 100 unit/mL insulin pen See Rx Instructions SC TID Qty: 30 0RF Dose Instruction: 18 units with each meal + sliding scale up to 20 additional units qd SC TID; Rx Instructions: 8-10 units with each meal + sliding scale up to 20 additional units qd SC TID; latanoprost 0.005 % drops 1 drp OPHTHALMIC QHS Label Comments: INSTILL 1 DROP INTO EACH EYE AT BEDTIME timolol maleate 0.5 % drops 1 drp OPHTHALMIC BID levothyroxine 125 mcg tablet 125 mcg PO .8 tablets per week Referrals / Follow Up: Dara Raymond DO [Primary Care Provider] - Disposition Disposition (needs filled in before D/C Order can be placed): DC/Tx to Another Type of HCF Charges/Coding Visit Charges Inpatient E&M: 64651 Disch Hosp >30min
== END 2022-11-21 20:45 | disposition short-term general hospital (02) | DRG 280 ==
LOC: ED 12:43 → PCU 12:54
PROVIDERS: Admitting Provider Family Medicine; Emergency Provider Emergency Medicine; PCP Internal Medicine; Visit Provider Family Medicine
DX: I21.4 Non-ST elevation (NSTEMI) myocardial infarction (principal); I50.41 Acute combined systolic (congestive) and diastolic (congestive) heart failure; N17.9 Acute kidney failure, unspecified; I11.0 Hypertensive heart disease with heart failure; E11.9 Type 2 diabetes mellitus without complications; Z79.4 Long term (current) use of insulin; E03.9 Hypothyroidism, unspecified; F41.9 Anxiety disorder, unspecified; Z20.822 Contact with and (suspected) exposure to COVID-19; F42.9 Obsessive-compulsive disorder, unspecified; Z79.890 Hormone replacement therapy; Z79.899 Other long term (current) drug therapy
CPT/HCPCS: 36415; 71045; 71275; 80048; 80053; 81001; 82962; 83880; 84484; 85025; 85379; 85610; 85730; 87428; 93005; 93306; 93454; 97162; 97166; 97802; 99152; 99153; 99285; J7030; Q9957; Q9967; A4216; C1769; C1894; C8929; J1940